=== PATIENT | female | born 1980 | race African-American/Black ===

== ENCOUNTER → 2020-06-04 | Outpatient (CLI) | payer BC, OTHER ==
[~2020-06-04] MED LIST: MOBIC7.5 MG PO; YAZ PO
== END ==
LOC: BC 13:56
PROVIDERS: ATTEND Obstetrics & Gynecology
DX: Z12.31 Encounter for screening mammogram for malignant neoplasm of breast (principal)

== ENCOUNTER → 2020-06-13 | Outpatient (CLI) | payer BC, OTHER | LOC: RAD 08:14 | PROVIDERS: ATTEND Obstetrics & Gynecology | DX: N63.20 Unspecified lump in the left breast, unspecified quadrant (principal); N64.89 Other specified disorders of breast ==

== ENCOUNTER → 2021-06-10 | Outpatient (CLI) | payer BC, OTHER | LOC: BC 14:24 | PROVIDERS: ATTEND Obstetrics & Gynecology | DX: Z12.31 Encounter for screening mammogram for malignant neoplasm of breast (principal); N64.89 Other specified disorders of breast ==